=== PATIENT | male | born 1935 | race African-American/Black ===

== ENCOUNTER 2023-11-06 05:43 | Inpatient (IN) | payer MEDICARE, OTHER ==
[~2023-11-06] VITALS: Ht 172.7 cm; Wt 102.5 kg
[~2023-11-06 05:43] MED LIST: AMLO5TAB88 MT; DOCU-150 MT; HYDR12.529 MT; LOSA50TA41 MT; PSYL575P22 PO; RANI-655 MT
[2023-11-06 06:53] LABS: BASOPHILS % 0.6 % (0.0-2.0); EOSINOPHILS % 3.5 % (0.0-5.0); HEMOGLOBIN. 13.6 g/dL (14.0-18.0); LYMPHOCYTES % 21.6 % (20.0-50.0); MEAN CORPUSCULAR HEMOGLOBIN 30.9 pg (28.0-32.0); MEAN CORPUSCULAR HGB CONC 33.9 g/dL (31.0-37.0); MEAN CORPUSCULAR VOLUME 91.1 fL (80.0-94.0); MEAN PLATELET VOLUME 8.6 fl (7.4-10.4); MONOCYTES % 4.2 % (2.0-8.0); NEUTROPHILS % 70.1 % (40.0-76.0); PLATELET 123 x1000/uL (130-400); RED BLOOD CELL COUNT 4.39 mill/uL (4.7-6.1); RED CELL DISTRIBUTION WIDTH 14.5 % (11.6-14.6)
[2023-11-06] MEDS: IOHEXOL-350 100 ML BOTTLE ONE (06:57)
[2023-11-06 07:01] LABS: CARBON DIOXIDE 24 mEq/L (21-32); CHLORIDE 107 mEq/L (98-107); POTASSIUM 3.5 mEq/L (3.5-5.1); SODIUM 140 mEq/L (136-145)
[2023-11-06 07:02] LABS: CALCIUM 8.9 mg/dL (8.7-10.4); PROTHROMBIN TIME 10.9 sec (9.6-11.0)
[2023-11-06 07:07] LABS: CREATININE 1.3 mg/dL (0.6-1.3); GLUCOSE 158 mg/dL (70-105); UREA NITROGEN BLOOD 15 mg/dL (9-23)
[2023-11-06 07:08] LABS: TROPONIN I HIGH SENSITIVITY 22 ng/L (3.0-53)
[2023-11-06 07:37] LABS: ETHANOL BLOOD < 10 mg/dL (<10)
[2023-11-06] MEDS: HYDRALAZINE 20MG/ML VIAL IV ONE (08:24)
[2023-11-06 09:11] LABS: TROPONIN I HIGH SENSITIVITY 154 ng/L (3.0-53)
[2023-11-06 10:15] VITALS: BP 166/60; PULSE 91; RESP 18; TEMP 98
[2023-11-06] MEDS ORDERED: ACETAMINOPHEN 325MG TABLET PO PRN (11:45)
[2023-11-06] MEDS ORDERED: IPRATROPIUM/ALBUTEROL 0.5-3(2.5)MG/3ML NEB HHN PRN (11:45)
[2023-11-06] MEDS ORDERED: ONDANSETRON HCL 4MG/2ML INJ IV PRN (11:45)
[2023-11-06] MEDS ORDERED: FAMO20TA8 PO (11:48)
[2023-11-06] MEDS: ASPIRIN 81MG TABLET PO SCH (11:59)
[2023-11-06] MEDS: CLOPIDOGREL 75MG TABLET PO SCH (11:59)
[2023-11-06 12:00] VITALS: BP 186/71; PULSE 66; RESP 18; TEMP 97.7
[2023-11-06] MEDS: AMLODIPINE 10MG TABLET PO SCH (12:30)
[2023-11-06] MEDS: HYDRALAZINE HCL 50MG TABLET PO SCH (12:30)
[2023-11-06] MEDS: ACETAMINOPHEN 325MG TABLET PO PRN (12:31)
[2023-11-06 13:16] LABS: CLARITY URINE CLEAR (CLEAR); COLOR URINE YELLOW (YELLOW); GLUCOSE URINE NEGATIVE (NEGATIVE); KETONES URINE NEGATIVE (NEGATIVE); LEUKOCYTE ESTERASE URINE NEGATIVE (NEGATIVE); NITRITE URINE NEGATIVE (NEGATIVE); OCCULT BLOOD URINE NEGATIVE (NEGATIVE); PH URINE 5.5 (4.5-8.0); PROTEIN URINE NEGATIVE (NEGATIVE); SPECIFIC GRAVITY URINE 1.032 (1.005-1.030); UROBILINOGEN URINE 0.2 E.U./dL (0.2-1.0)
[2023-11-06 14:12] LABS: *AMPHETAMINES SCREEN URINE NEGATIVE (NEGATIVE); *BARBITURATES SCREEN URINE NEGATIVE (NEGATIVE); *BENZODIAZEPINES SCREEN URINE NEGATIVE (NEGATIVE); *COCAINE SCREEN URINE NEGATIVE (NEGATIVE); METHADONE URINE SCREEN NEGATIVE (NEGATIVE)
[2023-11-06 14:13] LABS: CANNABINOID URINE SCREEN NEGATIVE (NEGATIVE); ECSTASY MDMA SCREEN URINE NEGATIVE (NEGATIVE); OPIATES URINE SCREEN NEGATIVE (NEGATIVE); PHENCYCLIDINE URINE SCREEN NEGATIVE (NEGATIVE)
[2023-11-06 14:33] LABS: CREATINE KINASE 106 IU/L (46-171)
[2023-11-06 16:00] VITALS: BP 164/68; PULSE 68; RESP 18; TEMP 97.6
[2023-11-06 17:22] VITALS: BP 152/62; PULSE 71; RESP 18; TEMP 97.5
[2023-11-06] MEDS: DOCUSATE SODIUM 100MG CAPSULE PO PRN (17:29)
[2023-11-06 20:00] VITALS: BP 158/59; PULSE 69; RESP 18; TEMP 97.4
[2023-11-06] MEDS ORDERED: ATORVASTATIN CALCIUM 40MG TABLET PO SCH (21:00)
[2023-11-06 23:37] LABS: CREATINE KINASE 1423 IU/L (46-171)
[2023-11-07] VITALS (7 sets, daily range): BP systolic 123–163; BP diastolic 66–72; PULSE 72–80; RESP 16–18; TEMP 97.4–98.8
[2023-11-07 06:27] LABS: BASOPHILS % 0.5 % (0.0-2.0); EOSINOPHILS % 1.2 % (0.0-5.0); HEMOGLOBIN. 13.5 g/dL (14.0-18.0); LYMPHOCYTES % 17.2 % (20.0-50.0); MEAN CORPUSCULAR HGB CONC 34.6 g/dL (31.0-37.0); MEAN CORPUSCULAR VOLUME 89.6 fL (80.0-94.0); MEAN PLATELET VOLUME 8.6 fl (7.4-10.4); MONOCYTES % 8.4 % (2.0-8.0); NEUTROPHILS % 72.7 % (40.0-76.0); PLATELET 134 x1000/uL (130-400); RED BLOOD CELL COUNT 4.36 mill/uL (4.7-6.1); RED CELL DISTRIBUTION WIDTH 14.8 % (11.6-14.6); WHITE BLOOD COUNT 7.2 x1000/uL (4.5-11.0)
[2023-11-07 06:35] LABS: CHLORIDE 109 mEq/L (98-107); POTASSIUM 3.8 mEq/L (3.5-5.1); SODIUM 142 mEq/L (136-145)
[2023-11-07 06:36] LABS: CALCIUM 9.1 mg/dL (8.7-10.4)
[2023-11-07 06:41] LABS: CREATININE 1.1 mg/dL (0.6-1.3); GLUCOSE 113 mg/dL (70-105); TRIGLYCERIDE 60 mg/dL (0-150); UREA NITROGEN BLOOD 14 mg/dL (9-23)
[2023-11-07 06:42] LABS: LDL CHOLESTEROL 81 mg/dL (5-100)
[2023-11-07 06:43] LABS: ALANINE AMINOTRANSFERASE 31 IU/L (10-49); ALBUMIN 3.9 g/dL (3.2-4.8); ASPARTATE AMINOTRANSFERASE 42 IU/L (<34); BILIRUBIN TOTAL 1.6 mg/dL (0.1-1.0); CHOLESTEROL 155 mg/dL (<200); HDL CHOLESTEROL 63 mg/dL (>55); PROTEIN TOTAL 6.9 g/dL (6.0-8.3)
[2023-11-07 06:54] LABS: CREATINE KINASE 1386 IU/L (46-171)
[2023-11-07 08:14] LABS: TROPONIN I HIGH SENSITIVITY 280 ng/L (3.0-53)
[2023-11-07 08:19] LABS: CARBON DIOXIDE 25 mEq/L (21-32)
[2023-11-08] VITALS: BP 169/66; PULSE 71; RESP 18; TEMP 97.4
[2023-11-08 04:00] VITALS: BP 165/72; PULSE 73; RESP 18; TEMP 97.4
[2023-11-08 07:04] LABS: CARBON DIOXIDE 27 mEq/L (21-32); CHLORIDE 108 mEq/L (98-107); POTASSIUM 3.6 mEq/L (3.5-5.1); SODIUM 141 mEq/L (136-145)
[2023-11-08 07:05] LABS: CALCIUM 8.9 mg/dL (8.7-10.4)
[2023-11-08 07:10] LABS: GLUCOSE 105 mg/dL (70-105)
[2023-11-08 07:11] LABS: UREA NITROGEN BLOOD 12 mg/dL (9-23)
[2023-11-08 07:14] LABS: BASOPHILS % 0.5 % (0.0-2.0); EOSINOPHILS % 3.4 % (0.0-5.0); HEMATOCRIT. 39.3 % (42.0-52.0); HEMOGLOBIN. 13.6 g/dL (14.0-18.0); LYMPHOCYTES % 16.3 % (20.0-50.0); MEAN CORPUSCULAR HEMOGLOBIN 31.2 pg (28.0-32.0); MEAN CORPUSCULAR HGB CONC 34.6 g/dL (31.0-37.0); MEAN CORPUSCULAR VOLUME 90.4 fL (80.0-94.0); MEAN PLATELET VOLUME 9.2 fl (7.4-10.4); MONOCYTES % 9.9 % (2.0-8.0); NEUTROPHILS % 69.9 % (40.0-76.0); PLATELET 131 x1000/uL (130-400); RED BLOOD CELL COUNT 4.35 mill/uL (4.7-6.1); RED CELL DISTRIBUTION WIDTH 14.5 % (11.6-14.6); WHITE BLOOD COUNT 6.9 x1000/uL (4.5-11.0)
[2023-11-08 07:45] LABS: TROPONIN I HIGH SENSITIVITY 132 ng/L (3.0-53)
[2023-11-08 07:56] VITALS: BP 158/69; PULSE 76; RESP 18; TEMP 98.1
[2023-11-08] MEDS ORDERED: ASPI-1160 PO (10:55)
[2023-11-08] MEDS ORDERED: HYDR50TA39 PO (10:55)
[2023-11-08] MEDS ORDERED: AMLO10TA80 PO (10:55)
[2023-11-08] MEDS ORDERED: CLOP-31 PO (10:55)
[2023-11-08 12:00] VITALS: BP 153/62; PULSE 65; RESP 18; TEMP 98
[2023-11-08] MEDS: CEPHALEXIN 250MG CAPSULE PO SCH (14:29)
[2023-11-08] MEDS: MUPIROCIN 2% OINT 15GM TOP SCH (14:30)
[2023-11-08 16:00] VITALS: BP 166/79; PULSE 69; RESP 18; TEMP 97.7
[2023-11-08] MEDS: LOSARTAN 50 MG TABLET PO SCH (17:34)
[2023-11-08 20:00] VITALS: BP_SYST 152; BP_SYST 156; BP_DIAS 65; BP_DIAS 85; PULSE 78; PULSE 86; RESP 18; RESP 19; TEMP 97.8; TEMP 97.9
[2023-11-08] MEDS ORDERED: ATORVASTATIN CALCIUM 40MG TABLET PO SCH (21:00)
[2023-11-09] VITALS: BP 158/85; PULSE 73; RESP 18; TEMP 97.5
[2023-11-09 04:00] VITALS: BP 153/67; PULSE 74; RESP 18; TEMP 97.7
[2023-11-09 08:00] VITALS: BP 143/65; PULSE 80; RESP 18; TEMP 99
[2023-11-09 12:00] VITALS: BP 146/52; PULSE 72; RESP 18; TEMP 97.6
[2023-11-09 16:00] VITALS: BP 153/66; PULSE 65; RESP 18; TEMP 98
[2023-11-09 20:00] VITALS: BP 147/55; PULSE 74; RESP 20; TEMP 99
[2023-11-10] VITALS: BP 156/67; PULSE 77; RESP 20; TEMP 97.9
[2023-11-10 04:00] VITALS: BP 145/71; PULSE 77; RESP 18; TEMP 98.1
[2023-11-10 08:00] VITALS: BP 115/74; PULSE 90; RESP 18; TEMP 99.4
[2023-11-10] MEDS ORDERED: CLOP-31 PO (11:38)
[2023-11-10] MEDS ORDERED: ASPI-1160 PO (11:38)
[2023-11-10] MEDS ORDERED: LOSA25TA26 MT (11:38)
[2023-11-10] MEDS ORDERED: CEPH250C2 PO (11:38)
[2023-11-10] MEDS ORDERED: AMLO10TA80 PO (11:38)
[2023-11-10] MEDS ORDERED: HYDR50TA39 PO (11:38)
[2023-11-10] MEDS ORDERED: MUPI22OI2 TOP (11:39)
[2023-11-10 11:56] VITALS: BP 142/60; PULSE 66; RESP 16; TEMP 98.1
[2023-11-10 12:39] VITALS: BP 142/60; PULSE 66; TEMP 98.1; O2SAT 98
[2023-11-11] MEDS ORDERED: LOSARTAN 25 MG TABLET PO SCH (09:00)
== END 2023-11-10 17:29 | disposition home health service (06) | DRG 70 ==
LOC: ER 05:47 → 5WST 08:31 → EDBEDREQ 08:39 → 8WST 10:10
PROVIDERS: ADMIT Internal Medicine; ATTEND Internal Medicine
PROC: 0HDRXZZ Extraction of Toe Nail, External Approach (ICD-10-PCS; principal; 2023-11-08)
DX: G93.41 Metabolic encephalopathy (principal); G82.50 Quadriplegia, unspecified; I50.32 Chronic diastolic (congestive) heart failure; R47.01 Aphasia; I65.23 Occlusion and stenosis of bilateral carotid arteries; I16.0 Hypertensive urgency; D64.9 Anemia, unspecified; I25.10 Atherosclerotic heart disease of native coronary artery without angina pectoris; E66.9 Obesity, unspecified; I11.0 Hypertensive heart disease with heart failure; R26.9 Unspecified abnormalities of gait and mobility; B35.1 Tinea unguium; E78.5 Hyperlipidemia, unspecified; L03.032 Cellulitis of left toe; I73.9 Peripheral vascular disease, unspecified; S81.812A Laceration without foreign body, left lower leg, initial encounter; S81.811A Laceration without foreign body, right lower leg, initial encounter; M19.09 Primary osteoarthritis, other specified site; S91.202A Unspecified open wound of left great toe with damage to nail, initial encounter; R47.1 Dysarthria and anarthria; I35.0 Nonrheumatic aortic (valve) stenosis; G62.9 Polyneuropathy, unspecified; I25.2 Old myocardial infarction; Z86.73 Personal history of transient ischemic attack (TIA), and cerebral infarction without residual deficits; Z82.49 Family history of ischemic heart disease and other diseases of the circulatory system; Z68.34 Body mass index [BMI] 34.0-34.9, adult; Z87.891 Personal history of nicotine dependence; W06.XXXA Fall from bed, initial encounter; Y93.89 Activity, other specified; Y92.89 Other specified places as the place of occurrence of the external cause; Y99.8 Other external cause status
CPT/HCPCS: 36415; 70496; 70498; 70551; 71045; 73110; 80048; 80053; 80061; 80305; 80320; 81003; 82550; 83036; 83735; 84484; 85025; 87070; 92523; 92610; 93005; 93306; 93923; 97110; 97162; 97166; 97535; 99285; C1893; J0360; Q9967; G0480